=== PATIENT | male | born 2000 | race African-American/Black ===

== ENCOUNTER 2024-01-11 22:50 | Observation (INO) | payer OTHER ==
[2024-01-12] MEDS ORDERED: Acetaminophen 325 MG TAB PO PRN (00:44)
[2024-01-12] MEDS ORDERED: Ondansetron PF 4 MG/2 ML Vial IVP PRN (00:44)
[2024-01-12 01:03] VITALS: BMI 23.1
[2024-01-12] MEDS ORDERED: Nitroglycerin 0.4 MG TAB (25 Tab Bottle) SL PRN (01:03)
[2024-01-12] MEDS ORDERED: Ibuprofen 600 MG TAB PO PRN (01:35)
[2024-01-12 01:52] LABS: Troponin I 0.022 ng/mL (< 0.028)
[2024-01-12] MEDS: Enoxaparin 40 MG (0.4 mL) SYRINGE SC SCH (01:53)
[2024-01-12] MEDS: Lactated Ringer's 1,000 ML IV SCH (01:53)
[2024-01-12 05:05] LABS: #Basophils 0.06 10x3/uL (0.0-0.2); %Basophils 1.1 % (0.0-1.0); %Eosinophils 7.8 % (0.0-10.0); %Lymphocytes 42.7 % (21.0-51.0); %Monocytes 13.4 % (0.0-10.0); %Neutrophils 34.8 % (42.0-75.0); Hematocrit 40.1 % (42.0-52.0); Hemoglobin 13.9 g/dL (14.0-18.0); Mean Corpuscular HGB CONC 34.7 g/dL (32.0-36.0); Mean Corpuscular Hemoglobin 33.7 pg (27.0-31.0); Mean Corpuscular Volume 97.3 fL (78.0-98.0); Platelet Count 235 10x3/uL (130-400); RBC Distribution Width 11.9 % (11.5-14.5); Red Blood Cell (RBC) Count 4.12 mill/uL (4.70-6.10)
[2024-01-12 05:27] LABS: Anion Gap 12 mmol/L (10-20); BUN (Urea Nitrogen) 13 mg/dL (8.9-20.6); Calc. Creatinine Clearance 145 mL/min (70-130); Calcium 8.6 mg/dL (7.8-10.44); Carbon Dioxide 23 mmol/L (22-29); Chloride 110 mmol/L (98-107); Estimated GFR 124; Glucose 94 mg/dL (70-105); Sodium 141 mmol/L (136-145)
[2024-01-12 05:28] LABS: Troponin I 0.018 ng/mL (< 0.028)
[2024-01-12] MEDS: Famotidine 20 MG TAB PO SCH (08:25)
[2024-01-12] MEDS: Aspirin 81 mg Enteric Coated Tablet PO SCH (08:25)
[2024-01-12] MEDS: levETIRAcetam 500 MG TAB PO SCH ×2 (08:26)
[2024-01-12] MEDS ORDERED: Regadenoson 0.4 MG/5 ML SYRINGE ONE (09:36)
[2024-01-12] MEDS ORDERED: Mag-Al 1200 mg/1200 mg/30 ML UDCUP PO PRN (12:41)
[2024-01-12 13:03] LABS: Bilirubin Negative (Negative); Blood, Urine Negative (Negative); Glucose, Urine (Dipstick) Negative (Negative); Ketone, Urine Negative (Negative); Leukocyte Negative (Negative); Nitrite Negative (Negative); Protein, Urine (Dipstick) Negative (Neg-Trace); Urobilinogen 0.2 mg/dL (Less than 2)
[2024-01-12 13:10] LABS: Amphetamine Not Detected (NotDetected); Barbiturates Screen Not Detected (NotDetected); Benzodiazepine Screen Not Detected (NotDetected); Cocaine Metabolite Screen Not Detected (NotDetected); Methadone Not Detected (NotDetected); Methamphetamine Not Detected (NotDetected); Opiate Screen Not Detected (NotDetected); Oxycodone Screen Not Detected (NotDetected); Phencyclidine (PCP) Not Detected (NotDetected); THC/Cannabinoid Screen Not Detected (NotDetected); Tricyclic Screen Not Detected (NotDetected)
[2024-01-12 13:11] LABS: Bacteria/HPF None Seen HPF (None Seen); RBC/HPF 0-3 HPF (0-3); Squamous Epithelial None Seen HPF (0-3); WBC/HPF 0-3 HPF (0-3)
[2024-01-12 13:13] LABS: Clarity Clear (Clear)
[2024-01-12] MEDS: carBAMazepine 100 MG/5 ML UDCUP PO SCH (13:14)
[2024-01-12] MEDS: Cyclobenzaprine 10 MG TAB PO SCH (13:14)
[2024-01-12 16:16] VITALS: BP 117/45; TEMP 97.2
[2024-01-12] MEDS ORDERED: Enoxaparin 40 MG (0.4 mL) SYRINGE SC SCH (21:00)
[2024-01-12] MEDS ORDERED: levETIRAcetam 500 MG TAB PO SCH (21:00)
== END 2024-01-12 16:31 ==
LOC: 2SW 01-12 → EEVIPCON 01-12
PROVIDERS: ADMIT Student in an Organized Health Care Education/Training Program; ATTEND Internal Medicine
DX: R07.89 Other chest pain (principal); R56.9 Unspecified convulsions
CPT/HCPCS: 36415; 78452; 80048; 80306; 81001; 84484; 85025; 93017; 96372; A9502; G0378; G0379; J1650; J2785; J7120